=== PATIENT | female | born 1995 | race Caucasian/White ===

== ENCOUNTER 2017-01-01 05:46 | Inpatient (IN) ==
[2017-01-01] MEDS: LACTATED RINGERS 1,000 ML IV SCH ×3 (07:40→17:36)
[2017-01-01] MEDS ORDERED: BUTORPHANOL 1 MG/ML VIAL IV PRN (07:54)
[2017-01-01] MEDS ORDERED: ONDANSETRON 4 MG/2 ML VIAL IV PRN ×2 (07:54→19:53)
[2017-01-01] MEDS ORDERED: OXYTOCIN/LR 20 UNIT/1,000 ML BAG IV SCH (08:00)
[2017-01-01 08:32] LABS: Basophils % 0.3 % (0.0-0.8); Eosinophils # 0.1 10*3/uL (0.0-0.87); Eosinophils % 1.5 % (0.00-10.9); Hematocrit 37.4 VOL% (35.7-47.0); Hemoglobin 12.7 GM/DL (12.0-16.0); Immature Granulocytes % 0.8 %; Immature Granulocytes Absolute 0.06 #; Lymphocytes # 1.9 10*3/uL (1.4-4.0); Lymphocytes % 26.3 % (21.3-54.2); Mean Corpuscular Hemoglobin 30 PG (27-34); Mean Corpuscular Volume 88.8 FL (87-102); Mean Platelet Volume 11.8 FL (9.6-12.0); Monocytes # 0.6 10*3/uL (0.11-0.8); Monocytes % 7.4 % (1.7-12.7); Neutrophils # 4.7 10*3/uL (1.4-7.4); Neutrophils % 63.7 % (38.7-73.9); Platelet Count 185 T/CUMM (130-400); Red Blood Count 4.21 MC/CUMM (3.8-5.5); White Blood Count 7.4 T/CUMM (4-12)
[2017-01-01 08:58] LABS: Alanine Aminotransferase 16 U/L (13-56); Albumin 2.5 G/DL (3.4-5.0); Alkaline Phosphatase 158 U/L (45-117); Aspartate Amino Transferase 16 U/L (0-37); Bilirubin,Total < 0.39 MG/DL (0.2-1.0); Blood Urea Nitrogen 4 MG/DL (7-18); Calcium 9.3 MG/DL (8.5-10.1); Glucose 103 MG/DL (74-106); Osmolality,Calculated 275.4 MOS/KG (273-304); Potassium 3.8 MMOL/L (3.5-5.1); Sodium 140 MMOL/L (136-145); Total Protein 6.3 G/DL (6.4-8.3)
[2017-01-01] MEDS ORDERED: diphenhydrAMINE 50 MG/1 ML VIAL IV PRN ×2 (11:45)
[2017-01-01] MEDS ORDERED: FAMOTIDINE 20 MG/2 ML VIAL IV ONE (11:45)
[2017-01-01] MEDS ORDERED: PROMETHAZINE 25 MG/1 ML VIAL IM ONE (11:45)
[2017-01-01] MEDS ORDERED: fentaNYL 2 MCG/ROPIV 0.2% EPID 150 ML EPIDURAL SCH (11:45)
[2017-01-01] MEDS ORDERED: ePHEDrine 50 MG/ML AMP IV PRN (11:45)
[2017-01-01] MEDS ORDERED: hydrOXYzine HCL 25 MG/1 ML VIAL IM PRN (11:45)
[2017-01-01] MEDS ORDERED: CITRIC ACID/SODIUM CITRATE 30 ML UDCUP PO ONE (11:45)
[2017-01-01 14:39] LABS: Apearance,Urine Clear (Clear); Bilirubin,Urine Negative (Negative); Blood, Urine Trace mg/dL (Negative); Glucose,Urine (UA) Negative (Negative); Ketones,Urine 25 mg/dL (Negative); Mucus,Urine Occasional /LPF (Occasional); Nitrite,Urine Negative (Negative); Protein,Urine Negative; RBC,Urine 2 /HPF (0-4); Squamous Epithelial Cell,Urine Occasional /HPF (0-10); Urine Color Yellow (Yellow); Urine Specific Gravity 1.005 (1.001-1.035); WBC,Urine <1 /HPF (0-6)
[2017-01-01 14:40] LABS: Urine Urobilinogen 0.2 EU/DL (0.2-1.0)
[2017-01-01] MEDS ORDERED: LIDOCAINE 1% 50 ML VIAL ONE (18:23)
[2017-01-01] MEDS ORDERED: miSOPROStol 200 MCG TABLET ONE (18:23)
[2017-01-01] MEDS ORDERED: METHYLERGONOVINE 0.2 MG/1 ML AMP ONE (18:24)
[2017-01-01] MEDS ORDERED: oxyCODONE/ACETAMINOPHEN 5-325 MG TABLET PO PRN (19:53)
[2017-01-01] MEDS ORDERED: HYDROCORTISONE 2.5% RECTAL CREAM 30 GM TUBE TOP PRN (19:53)
[2017-01-01] MEDS ORDERED: DIPH/TET/ACEL PERT BOOSTER VACCINE 0.5 ML VIAL IM ONE (19:53)
[2017-01-01] MEDS ORDERED: BENZOCAINE 20%/MENTHOL 0.5% SPRAY 56 GM CAN TOP PRN (19:53)
[2017-01-01] MEDS ORDERED: RHO(D) IMMUNE GLOBULIN 300 MCG SYRINGE IM ONE (19:53)
[2017-01-01] MEDS ORDERED: MEASLES/MUMPS/RUBELLA VACCINE 0.5 ML VIAL SUBCUT ONE (19:53)
[2017-01-01] MEDS ORDERED: WITCH HAZEL PADS 100/JAR TOP PRN (19:53)
[2017-01-01] MEDS ORDERED: LANOLIN 50% CREAM 0.3 OZ TUBE TOP PRN (19:53)
[2017-01-01] MEDS ORDERED: ACETAMINOPHEN 325 MG TABLET PO PRN (19:53)
[2017-01-01] MEDS ORDERED: OXYTOCIN/LR 20 UNIT/1,000 ML BAG IV ONE (19:53)
--- NOTE | 2017-01-01 19:56 | History and Physical Update ---
History and Physical Update - History and Physical H&P was reviewed, the patient examined and there: are no changes in the patients condition since last H&P was completed. - Dictation Physical: refer to scanned H&P - Physical Exam Mental Status: alert and oriented Heart: regular rate and rhythm Lung: clear to auscultation Abdomen: within normal limits Vitals: within normal limits History and Physical Changes: 21 yo at 39 wks for induction. No complications.
--- NOTE | 2017-01-01 20:00 | Operative Note ---
Date of procedure: 01/01/17 Pre-op diagnosis: 39 wks for induction Post-op diagnosis: same (+ deep variable decelerations + tight nuchal cord + shoulder dystocia) Procedure: MityVac vacuum assisted vaginal delivery; Reduction of tight nuchal cord; Second degree MLE with 4th degree extension; Shoulder dystocia relieved with Dylon, suprapubic pressure and delivery of the posterior shoulder. Patient progressed to complete and pushing with labor epidural. Baby with significant deep variable decels for ~10 minutes before I arrived. Benefits, risks, complications of vacuum delivery were discussed with the patient in detail. She voiced understanding and wished to proceed. Kiwi vacuum was applied to the vertex at +3 station through 1 uterine contraction but it would not maintain suction so a MityVac was used with delivery after moderate traction through 3 pushes. A second degree episiotomy was performed. A shoulder dystocia was encountered after delivery of the head which was relieved with Dylon, suprapubic pressure and delivery of the posterior shoulder. The infant was then delivered without difficulty. Tight nuchal cord was reduced at delivery. Baby was bulb suctioned. The cord was doubly clamped and cut and the baby was placed on mother's abdomen. Cord blood was collected. (I had to go to another delivery several rooms down and returned to pt's room ~30 minutes later for completion of the procedure.) The placenta then delivered intact. The second-degree midline episiotomy with 4th degree extension was repaired with 3- 0 Vicryl to the ~3cm rectal mucosa laceration, then 2-0 and 3-0 chromic sutures to repair the transverse perineus and the second degree laceration with good approximation and hemostasis. . Fundus was noted to be firm. Pt tolerated this well. Estimated blood loss 600 mL. Patient was stable and the infant was stable. Anesthesia: local, epidural Surgeon / Physician: Vadnana Alexandra Estimated blood loss: other (600cc) Specimens: other (placenta to path; cord blood to lab) Condition: stable Disposition: no change Results - Labs CBC & BMP: 01/01/17 08:12 01/01/17 08:11 Discharge Plan - Discharge Medications No Action Pnv No.95/Ferrous Fum/Folic AC [ Tablet] 1 tablet PO DAILY - Follow Up or Referral - Forms/Instructions
[2017-01-01] MEDS: oxyCODONE/ACETAMINOPHEN 5-325 MG TABLET PO PRN (21:34)
[2017-01-01] MEDS: IBUPROFEN 800 MG TABLET PO PRN (21:34)
[2017-01-02 06:34] LABS: Basophils % 0.2 % (0.0-0.8); Eosinophils % 0.2 % (0.00-10.9); Immature Granulocytes % 0.7 %; Immature Granulocytes Absolute 0.12 #; Lymphocytes # 2.8 10*3/uL (1.4-4.0); Lymphocytes % 17.1 % (21.3-54.2); Mean Corpuscular HGB Conc 32.5 GM/DL (32-36); Mean Corpuscular Hemoglobin 30 PG (27-34); Mean Platelet Volume 11.9 FL (9.6-12.0); Monocytes # 1.3 10*3/uL (0.11-0.8); Neutrophils # 11.8 10*3/uL (1.4-7.4); Neutrophils % 73.8 % (38.7-73.9); Platelet Count 181 T/CUMM (130-400); Red Blood Count 3.48 MC/CUMM (3.8-5.5); Red Cell Distribution Width 16.2 % (9.3-17.3)
[2017-01-02 07:04] LABS: White Blood Count 16.1 T/CUMM (4-12)
[2017-01-02 07:05] LABS: Hemoglobin 10.4 GM/DL (12.0-16.0)
[2017-01-02] MEDS: DOCUSATE SODIUM 100 MG CAPSULE PO SCH ×2 (08:59→21:17)
[2017-01-02] MEDS: IBUPROFEN 800 MG TABLET PO PRN ×2 (10:31→21:16)
[2017-01-02] MEDS: oxyCODONE/ACETAMINOPHEN 5-325 MG TABLET PO PRN ×2 (10:31→21:14)
[2017-01-03 07:43] VITALS: BP 111/68
[2017-01-03] MEDS: DOCUSATE SODIUM 100 MG CAPSULE PO SCH (08:23)
--- NOTE | 2017-01-04 12:19 | Pathology Report from [facility] ---
[facility] ACCESSION # : [id number] PATIENT NAME : Bob Stephenson ORDERING DR : ELIZABETH JOYCE DO CLINICAL HX: IUP @ 39 wks, labor POST-OP DX: Same SPECIMEN INFO: Placenta GROSS DESCRIPTION: The specimen is received fresh labeled BOB STEPHENSON consists of a 624.0 gm placenta which measures 21.0 x 14.0 x 3.0 cm. The membranes are pink-velasco and translucent. The umbilical cord measures 38.0 cm, contains three vessels, and is eccentrically inserted. surface is blue- howard and intact. The maternal surface displays hemorrhagic red-howard cotyledons with scattered calcifications seen. Sectioning reveals no gross abnormalities. Sections submitted: (A) membranes and cord, (B) and maternal surfaces. DIAGNOSIS FOR BOB STEPHENSON: PLACENTA, MEMBRANES, UMBILICAL CORD: Focal placental infarction with dystrophic calcification, mild intervillous blood. Tri -vessel umbilical cord, eccentrically inserted. Membranes with focal chronic inflammation and attached blood. COLLECTED DATE: 01/03/2017 [facility] REPORT DATE: 01/04/2017 ELECTRONICALLY SIGNED BY: Haja Humphrey M.D. 01/04/2017 - 10:12:[address] [facility]
== END 2017-01-03 14:30 | disposition home or self-care (01) | DRG 560 ==
LOC: N.LDOUT 05:46 → N.LD 05:48 → N.OB 21:52
PROVIDERS: ADMIT Obstetrics & Gynecology; ATTEND Obstetrics & Gynecology

== ENCOUNTER 2021-02-23 05:28 | Inpatient (IN) ==
[2021-02-23] MEDS ORDERED: MEPERIDINE 50 MG/1 ML VIAL IV PRN (05:46)
[2021-02-23] MEDS ORDERED: BUTORPHANOL 2 MG/ML VIAL IV PRN (05:46)
[2021-02-23] MEDS ORDERED: ONDANSETRON 4 MG/2 ML VIAL IV PRN ×2 (05:46→15:32)
[2021-02-23] MEDS ORDERED: OXYTOCIN/LR 20 UNIT/1,000 ML BAG IV SCH (06:00)
[2021-02-23] MEDS: LACTATED RINGERS 1,000 ML IV SCH ×2 (06:10→09:13)
[2021-02-23 06:24] LABS: Basophils % 0.4 % (0.0-0.8); Eosinophils # 0.1 10*3/uL (0.0-0.87); Hematocrit 31.4 VOL% (35.7-47.0); Hemoglobin 9.8 GM/DL (12.0-16.0); Immature Granulocytes Absolute 0.08 #; Lymphocytes # 2.2 10*3/uL (1.4-4.0); Lymphocytes % 28.7 % (21.3-54.2); Mean Corpuscular HGB Conc 31.2 GM/DL (32-36); Mean Corpuscular Volume 79.7 FL (87-102); Mean Platelet Volume 11.3 FL (9.6-12.0); Monocytes % 6.4 % (1.7-12.7); Neutrophils % 62.5 % (38.7-73.9); Platelet Count 203 T/CUMM (130-400); Red Blood Count 3.94 MC/CUMM (3.8-5.5); Red Cell Distribution Width 15.9 % (9.3-17.3); White Blood Count 7.8 T/CUMM (4-12)
[2021-02-23 07:04] LABS: Albumin 2.6 G/DL (3.4-5.0); Bilirubin,Total 0.4 MG/DL (0.20-1.00); Osmolality,Calculated 272.7 MOS/KG (273-304); Potassium 3.6 MMOL/L (3.5-5.1); Total Protein 6.4 G/DL (6.4-8.2)
[2021-02-23] MEDS ORDERED: diphenhydrAMINE 50 MG/1 ML VIAL IV PRN ×2 (07:05)
[2021-02-23] MEDS ORDERED: LACTATED RINGERS 1,000 ML IV ONE (07:05)
[2021-02-23] MEDS ORDERED: CITRIC ACID/SODIUM CITRATE 30 ML UDCUP PO ONE (07:05)
[2021-02-23] MEDS ORDERED: PROMETHAZINE 25 MG/1 ML VIAL IM ONE (07:05)
[2021-02-23] MEDS ORDERED: NALOXONE 0.4 MG/ML VIAL IV PRN (07:05)
[2021-02-23] MEDS ORDERED: hydrOXYzine HCL 25 MG/1 ML VIAL IM PRN (07:05)
[2021-02-23] MEDS ORDERED: FAMOTIDINE 20 MG/2 ML VIAL IV ONE (07:05)
[2021-02-23] MEDS ORDERED: ePHEDrine 50 MG/ML VIAL IV PRN (07:05)
[2021-02-23] MEDS ORDERED: fentaNYL 2 MCG/ROPIV 0.2% EPID 100 ML EPIDURAL SCH (07:30)
[2021-02-23] MEDS ORDERED: AMPICILLIN INJ 2,000 MG in SODIUM CHLORIDE 0.9% 100 ML IV ONE (07:53)
[2021-02-23] MEDS ORDERED: INFLUENZA VIRUS VACCINE 0.5 ML SYRINGE IM ONE (08:15)
[2021-02-23 11:05] LABS: Bacteria,Urine Occasional /HPF (Few); Bilirubin,Urine Negative (Negative); Blood, Urine Small mg/dL (Negative); Glucose,Urine (UA) Negative (Negative); Ketones,Urine Negative (Negative); Mucus,Urine Few /LPF (Occasional); Nitrite,Urine Negative (Negative); Protein,Urine Negative; RBC,Urine <1 /HPF (0-4); Squamous Epithelial Cell,Urine Occasional /HPF (0-10); Urine Appearance CLEAR (Clear); Urine Color Yellow (Yellow); Urine Specific Gravity 1.011 (1.001-1.035); Urine Urobilinogen < 2.0 EU/DL (0.2-1.0)
[2021-02-23] MEDS ORDERED: AMPICILLIN INJ 1,000 MG in SODIUM CHLORIDE 0.9% 100 ML IV SCH (12:00)
[2021-02-23] MEDS ORDERED: miSOPROStoL 200 MCG TABLET ONE (13:55)
[2021-02-23] MEDS ORDERED: CARBOPROST TROMETHAMINE 250 MCG/ML AMP IM ONE (13:56)
[2021-02-23] MEDS ORDERED: METHYLERGONOVINE 0.2 MG/1 ML AMP ONE (13:56)
[2021-02-23 15:03] LABS: Cord Venous Blood PCO2 37.1 MMHG; Cord Venous Blood PO2 32.1
[2021-02-23 15:05] LABS: Cord Venous Blood HCO3 20.4 MMOL/L
[2021-02-23] MEDS ORDERED: OXYTOCIN/LR 20 UNIT/1,000 ML BAG IV ONE (15:32)
[2021-02-23] MEDS ORDERED: HYDROCORTISONE 2.5% RECTAL CREAM 30 GM TUBE TOP PRN (15:32)
[2021-02-23] MEDS ORDERED: oxyCODONE/ACETAMINOPHEN 5-325 MG TABLET PO PRN (15:32)
[2021-02-23] MEDS ORDERED: BISACODYL 10 MG SUPP RECTAL PRN (15:32)
[2021-02-23] MEDS ORDERED: BENZOCAINE 20%/MENTHOL 0.5% SPRAY 56 GM CAN TOP PRN (15:32)
[2021-02-23] MEDS ORDERED: WITCH HAZEL PADS 100/JAR TOP PRN (15:32)
[2021-02-23] MEDS ORDERED: LANOLIN 50% CREAM 0.3 OZ TUBE TOP PRN (15:32)
[2021-02-23] MEDS ORDERED: RHO(D) IMMUNE GLOBULIN 300 MCG SYRINGE IM ONE (15:32)
[2021-02-23] MEDS ORDERED: DIPH/TET/ACEL PERT BOOSTER VACCINE 0.5 ML VIAL IM ONE (15:32)
[2021-02-23] MEDS ORDERED: ACETAMINOPHEN 325 MG TABLET PO PRN (15:32)
[2021-02-23] MEDS ORDERED: MEASLES/MUMPS/RUBELLA VACCINE 0.5 ML VIAL SUBCUT ONE (15:32)
[2021-02-23] MEDS: IBUPROFEN 800 MG TABLET PO PRN (17:49)
[2021-02-23] MEDS: oxyCODONE/ACETAMINOPHEN 5-325 MG TABLET PO PRN (18:51)
[2021-02-23] MEDS: DOCUSATE SODIUM 100 MG CAPSULE PO SCH (21:03)
[2021-02-24] MEDS: IBUPROFEN 800 MG TABLET PO PRN ×2 (07:15→18:04)
[2021-02-24 07:27] LABS: Basophils % 0.4 % (0.0-0.8); Eosinophils # 0.1 10*3/uL (0.0-0.87); Hematocrit 29.4 VOL% (35.7-47.0); Hemoglobin 9.3 GM/DL (12.0-16.0); Immature Granulocytes % 0.9 %; Immature Granulocytes Absolute 0.09 #; Lymphocytes # 2.1 10*3/uL (1.4-4.0); Lymphocytes % 19.9 % (21.3-54.2); Mean Corpuscular HGB Conc 31.6 GM/DL (32-36); Mean Platelet Volume 11.7 FL (9.6-12.0); Monocytes % 5.7 % (1.7-12.7); Neutrophils % 72.1 % (38.7-73.9); Platelet Count 168 T/CUMM (130-400); Red Blood Count 3.63 MC/CUMM (3.8-5.5); White Blood Count 10.5 T/CUMM (4-12)
[2021-02-24] MEDS: DOCUSATE SODIUM 100 MG CAPSULE PO SCH ×2 (09:55→21:21)
[2021-02-24] MEDS: oxyCODONE/ACETAMINOPHEN 5-325 MG TABLET PO PRN (18:03)
[2021-02-24] MEDS: IRON (CARBONYL)/VIT C/B12/FA TABLET PO SCH (21:20)
[2021-02-25 07:53] VITALS: BP 123/78
[2021-02-25] MEDS: DOCUSATE SODIUM 100 MG CAPSULE PO SCH (08:17)
[2021-02-25] MEDS: IRON (CARBONYL)/VIT C/B12/FA TABLET PO SCH (08:20)
== END 2021-02-25 12:20 | disposition home or self-care (01) | DRG 560 ==
LOC: N.LD 05:28 → N.OB 17:45
PROVIDERS: ADMIT Specialist; ATTEND Specialist